=== PATIENT | female | born 1990 | race Caucasian/White ===

== ENCOUNTER 2021-09-03 18:38 | Emergency (ER) | payer OTHER ==
[2021-09-03 18:49] VITALS: TEMP 98.9; BMI 22.3
[2021-09-03 19:47] LABS: BASO % 0.7 % (0-2.0); EOS % 1.4 % (0-4.5); HEMATOCRIT 30.8 % (32.4-45.2); HEMOGLOBIN 10.2 GM/dL (10.7-15.3); LYMPH % 39.1 % (8-40); MCH 27.5 pg (25.7-33.7); MEAN CELL VOLUME 83.3 fl (80-96); MEAN PLT VOLUME 7.7 fl (7.5-11.1); MONO % 9.5 % (3.8-10.2); NEUT % 49.3 % (42.8-82.8); PLATELET COUNT 286 10^3/uL (134-434); RDW 14.2 % (11.6-15.6); WHITE BLOOD COUNT 6.4 K/mm3 (4.0-10.0)
[2021-09-03 19:48] LABS: PH,URINE 5.5 (5.0-8.0); URINE APPEARANCE CLEAR; URINE BILIRUBIN NEGATIVE (NEGATIVE); URINE COLOR YELLOW; URINE GLUCOSE (UA) NEGATIVE (NEGATIVE); URINE KETONE NEGATIVE (NEGATIVE); URINE LEUK ESTERASE NEGATIVE (NEGATIVE); URINE NITRITE NEGATIVE (NEGATIVE); URINE PROTEIN NEGATIVE (NEGATIVE); URINE UROBILINOGEN 0.2 mg/dL (0.2-1.0)
[2021-09-03] MEDS ORDERED: IBUPROFEN 400 MG TABLET (FP) PO ONE ×2 (20:16→20:20)
[2021-09-03 20:45] LABS: BLOOD UREA NITROGEN 3.7 mg/dL (7-18); CALCIUM 8.7 mg/dL (8.5-10.1)
[2021-09-03 20:46] LABS: ALBUMIN 3.6 g/dl (3.4-5.0)
[2021-09-03 20:49] LABS: CREATININE 0.6 mg/dL (0.55-1.3)
[2021-09-03 20:50] LABS: BILIRUBIN,TOTAL 0.5 mg/dL (0.2-1); TOT PROT 6.8 g/dl (6.4-8.2)
[2021-09-04 00:16] VITALS: BP 104/67; PULSE 62
== END 2021-09-04 00:17 | disposition home or self-care (01) ==
LOC: JER 18:38
DX: R10.2 Pelvic and perineal pain (principal)
CPT/HCPCS: 36415; 76856-TC; 80053; 81003; 84703; 85025; 87086; 87491; 87591; 99285-25

== ENCOUNTER 2021-09-04 01:52 | Inpatient (IN) | payer OTHER ==
[2021-09-04 02:04] VITALS: BMI 22.3
[2021-09-04] MEDS ORDERED: guaiFENesin 200 MG/10 ML 10 ML UNIT-DOSE CUPS PO PRN (02:38)
[2021-09-04] MEDS ORDERED: P-EPHED 60MG/TRIPROLIDI 2.5MG TABLET PO PRN (02:38)
[2021-09-04] MEDS ORDERED: MAGNESIUM HYDROX 2400MG/30ML ORAL SUSPENSION 30 ML CUP PO PRN (02:38)
[2021-09-04] MEDS ORDERED: NICOTINE POLACRILEX 2 MG GUM BC PRN (02:38)
[2021-09-04] MEDS ORDERED: MAGNESIUM CITRATE 300 ML BOTTLE PO PRN (02:38)
[2021-09-04] MEDS ORDERED: LOPERAMIDE HCL 2 MG CAPSULE PO PRN (02:38)
[2021-09-04] MEDS ORDERED: ALBUTEROL SO4 HFA INHALER IH PRN (02:41)
[2021-09-04] MEDS ORDERED: TUBERCULIN PPD 5 TU/0.1ML VIAL ID ONE (03:33)
[2021-09-04] MEDS: hydrOXYzine PAMOATE 25 MG CAPSULE (FP) PO PRN ×2 (03:49→21:56)
[2021-09-04] MEDS: PRENATAL VITAMINS W/ FOLIC ACID TABLET (FP) PO SCH (09:58)
[2021-09-04] MEDS: NICOTINE 14 MG/24 HOURS TOPICAL PATCH TD SCH (09:58)
[2021-09-04] MEDS: ESCITALOPRAM OXALATE 10 MG TABLET PO SCH (11:38)
[2021-09-04] MEDS ORDERED: BUPRENORPHINE/NALOXONE 4 MG/1 MG FILM PACKET SL ONE (11:45)
[2021-09-04] MEDS: GABAPENTIN 400 MG CAPSULE PO SCH ×2 (13:12→21:55)
[2021-09-04 14:03] LABS: HEMATOCRIT 28.9 % (32.4-45.2); HEMOGLOBIN 9.5 GM/dL (10.7-15.3); MCH 27.3 pg (25.7-33.7); MEAN CELL VOLUME 82.9 fl (80-96); MEAN PLT VOLUME 8.4 fl (7.5-11.1); PLATELET COUNT 264 10^3/uL (134-434); RBC 3.49 M/mm3 (3.60-5.2); RDW 14.3 % (11.6-15.6)
[2021-09-04 14:15] LABS: BLOOD UREA NITROGEN 4.8 mg/dL (7-18); CALCIUM 8.6 mg/dL (8.5-10.1)
[2021-09-04 14:18] LABS: CREATININE 0.7 mg/dL (0.55-1.3)
[2021-09-04 14:20] LABS: BILIRUBIN,TOTAL 0.2 mg/dL (0.2-1); TOT PROT 5.9 g/dl (6.4-8.2)
[2021-09-04 15:47] LABS: SYPHILIS W/ RPR CONF NON-REACTIVE (NONREACTIVE)
[2021-09-04 16:04] LABS: HIV INTERPRETATION NEGATIVE (NEGATIVE)
[2021-09-04] MEDS: FERROUS SO4 325 MG TABLET (FP) PO SCH (17:43)
[2021-09-04] MEDS: BUPRENORPHINE/NALOXONE 8 MG/2 MG FILM PACKET SL SCH (17:43)
[2021-09-04] MEDS: NICOTINE 10 MG CARTRIDGE (INHALER) IH PRN (21:55)
[2021-09-04] MEDS: THIAMINE HCL 100 MG TABLET (FP) PO SCH (21:56)
[2021-09-04] MEDS: QUEtiapine FUMARATE 100 MG TABLET (FP) PO SCH (21:59)
[2021-09-04] MEDS ORDERED: MELATONIN 5 MG TABLETS PO SCH (22:00)
[2021-09-04] MEDS: IBUPROFEN 400 MG TABLET (FP) PO PRN (22:01)
[2021-09-05] MEDS: GABAPENTIN 400 MG CAPSULE PO SCH ×3 (06:53→21:09)
[2021-09-05] MEDS: BUPRENORPHINE/NALOXONE 8 MG/2 MG FILM PACKET SL SCH ×2 (06:53→17:18)
[2021-09-05] MEDS: FERROUS SO4 325 MG TABLET (FP) PO SCH ×2 (07:40→17:18)
[2021-09-05] MEDS: NICOTINE 14 MG/24 HOURS TOPICAL PATCH TD SCH (10:08)
[2021-09-05] MEDS: ESCITALOPRAM OXALATE 10 MG TABLET PO SCH (10:08)
[2021-09-05] MEDS: PRENATAL VITAMINS W/ FOLIC ACID TABLET (FP) PO SCH (10:08)
[2021-09-05] MEDS: IBUPROFEN 400 MG TABLET (FP) PO PRN ×2 (10:09→21:10)
[2021-09-05] MEDS: THIAMINE HCL 100 MG TABLET (FP) PO SCH (21:09)
[2021-09-05] MEDS: QUEtiapine FUMARATE 100 MG TABLET (FP) PO SCH (21:09)
[2021-09-06] MEDS: BUPRENORPHINE/NALOXONE 8 MG/2 MG FILM PACKET SL SCH ×2 (06:56→17:39)
[2021-09-06] MEDS: GABAPENTIN 400 MG CAPSULE PO SCH ×3 (06:56→21:19)
[2021-09-06] MEDS: FERROUS SO4 325 MG TABLET (FP) PO SCH ×2 (07:12→17:39)
[2021-09-06] MEDS: PRENATAL VITAMINS W/ FOLIC ACID TABLET (FP) PO SCH (09:56)
[2021-09-06] MEDS: ESCITALOPRAM OXALATE 10 MG TABLET PO SCH (09:56)
[2021-09-06] MEDS: NICOTINE 14 MG/24 HOURS TOPICAL PATCH TD SCH (09:57)
[2021-09-06 17:05] LABS: EPI CELLS >36 /uL (0-25.1); HYALINE CASTS 1 /uL (0-3.1); PH,URINE 5.5 (5.0-8.0); URINE APPEARANCE CLEAR; URINE BACTERIA 753 /uL (0-1359); URINE BILIRUBIN NEGATIVE (NEGATIVE); URINE COLOR YELLOW; URINE GLUCOSE (UA) NEGATIVE (NEGATIVE); URINE KETONE NEGATIVE (NEGATIVE); URINE LEUK ESTERASE 1+ (NEGATIVE); URINE NITRITE NEGATIVE (NEGATIVE); URINE PROTEIN NEGATIVE (NEGATIVE); URINE RBC 5 /uL (0-23.9); URINE UROBILINOGEN 0.2 mg/dL (0.2-1.0); URINE WBC 36 /uL (0-25.8)
[2021-09-06] MEDS: IBUPROFEN 400 MG TABLET (FP) PO PRN (17:39)
[2021-09-06] MEDS: QUEtiapine FUMARATE 100 MG TABLET (FP) PO SCH (21:19)
[2021-09-06] MEDS: THIAMINE HCL 100 MG TABLET (FP) PO SCH (21:19)
[2021-09-07] MEDS: GABAPENTIN 400 MG CAPSULE PO SCH ×3 (06:46→21:20)
[2021-09-07] MEDS: BUPRENORPHINE/NALOXONE 8 MG/2 MG FILM PACKET SL SCH ×2 (06:47→17:38)
[2021-09-07] MEDS: FERROUS SO4 325 MG TABLET (FP) PO SCH ×2 (07:36→17:37)
[2021-09-07] MEDS: ESCITALOPRAM OXALATE 10 MG TABLET PO SCH (10:28)
[2021-09-07] MEDS: NICOTINE 14 MG/24 HOURS TOPICAL PATCH TD SCH (10:28)
[2021-09-07] MEDS: PRENATAL VITAMINS W/ FOLIC ACID TABLET (FP) PO SCH (10:28)
[2021-09-07] MEDS: ACETAMINOPHEN 325 MG TABLET (FP) PO PRN (10:28)
[2021-09-07] MEDS: NICOTINE 10 MG CARTRIDGE (INHALER) IH PRN (10:30)
[2021-09-07] MEDS: METHYL SALICYLATE/MENTHOL OINT 30 GM TUBE TP SCH ×2 (13:26→21:19)
[2021-09-07] MEDS: THIAMINE HCL 100 MG TABLET (FP) PO SCH (21:19)
[2021-09-07] MEDS: QUEtiapine FUMARATE 100 MG TABLET (FP) PO SCH (21:20)
[2021-09-08] MEDS: BUPRENORPHINE/NALOXONE 8 MG/2 MG FILM PACKET SL SCH ×2 (06:56→16:50)
[2021-09-08] MEDS: GABAPENTIN 400 MG CAPSULE PO SCH ×3 (06:56→21:51)
[2021-09-08] MEDS: FERROUS SO4 325 MG TABLET (FP) PO SCH ×2 (07:19→16:50)
[2021-09-08] MEDS: ESCITALOPRAM OXALATE 10 MG TABLET PO SCH (10:11)
[2021-09-08] MEDS: METHYL SALICYLATE/MENTHOL OINT 30 GM TUBE TP SCH ×2 (10:11→21:51)
[2021-09-08] MEDS: NICOTINE 14 MG/24 HOURS TOPICAL PATCH TD SCH (10:12)
[2021-09-08] MEDS: PRENATAL VITAMINS W/ FOLIC ACID TABLET (FP) PO SCH (10:12)
[2021-09-08 14:07] LABS: SARS-CoV-2 NAA Not Detected (Not Detected)
[2021-09-08] MEDS: NICOTINE 10 MG CARTRIDGE (INHALER) IH PRN (16:47)
[2021-09-08] MEDS: QUEtiapine FUMARATE 100 MG TABLET (FP) PO SCH (21:51)
[2021-09-08] MEDS: THIAMINE HCL 100 MG TABLET (FP) PO SCH (21:51)
[2021-09-08] MEDS: IBUPROFEN 400 MG TABLET (FP) PO PRN (21:53)
[2021-09-09] MEDS: BUPRENORPHINE/NALOXONE 8 MG/2 MG FILM PACKET SL SCH ×2 (07:02→17:44)
[2021-09-09] MEDS: GABAPENTIN 400 MG CAPSULE PO SCH ×3 (07:02→21:48)
[2021-09-09] MEDS: FERROUS SO4 325 MG TABLET (FP) PO SCH ×2 (07:02→17:44)
[2021-09-09] MEDS: NICOTINE 14 MG/24 HOURS TOPICAL PATCH TD SCH (10:22)
[2021-09-09] MEDS: PRENATAL VITAMINS W/ FOLIC ACID TABLET (FP) PO SCH (10:22)
[2021-09-09] MEDS: METHYL SALICYLATE/MENTHOL OINT 30 GM TUBE TP SCH ×2 (10:22→22:01)
[2021-09-09] MEDS: ESCITALOPRAM OXALATE 10 MG TABLET PO SCH (10:22)
[2021-09-09] MEDS: NICOTINE 10 MG CARTRIDGE (INHALER) IH PRN (13:54)
[2021-09-09] MEDS: DOXYCYCLINE HYCLATE 100 MG CAPSULE PO SCH (21:47)
[2021-09-09] MEDS: THIAMINE HCL 100 MG TABLET (FP) PO SCH (21:48)
[2021-09-09] MEDS: QUEtiapine FUMARATE 100 MG TABLET (FP) PO SCH (21:48)
[2021-09-10] MEDS: BUPRENORPHINE/NALOXONE 8 MG/2 MG FILM PACKET SL SCH ×2 (07:01→17:41)
[2021-09-10] MEDS: GABAPENTIN 400 MG CAPSULE PO SCH ×3 (07:01→21:40)
[2021-09-10] MEDS: FERROUS SO4 325 MG TABLET (FP) PO SCH ×2 (07:59→17:41)
[2021-09-10] MEDS: METHYL SALICYLATE/MENTHOL OINT 30 GM TUBE TP SCH ×2 (10:13→21:40)
[2021-09-10] MEDS: ESCITALOPRAM OXALATE 10 MG TABLET PO SCH (10:13)
[2021-09-10] MEDS: NICOTINE 14 MG/24 HOURS TOPICAL PATCH TD SCH (10:13)
[2021-09-10] MEDS: DOXYCYCLINE HYCLATE 100 MG CAPSULE PO SCH ×2 (10:14→17:51)
[2021-09-10] MEDS: NICOTINE 10 MG CARTRIDGE (INHALER) IH PRN ×2 (10:14→17:41)
[2021-09-10] MEDS: PRENATAL VITAMINS W/ FOLIC ACID TABLET (FP) PO SCH (10:15)
[2021-09-10] MEDS: QUEtiapine FUMARATE 100 MG TABLET (FP) PO SCH (21:40)
[2021-09-10] MEDS: THIAMINE HCL 100 MG TABLET (FP) PO SCH (21:40)
[2021-09-10] MEDS: hydrOXYzine PAMOATE 25 MG CAPSULE (FP) PO PRN (21:40)
[2021-09-11] MEDS: NICOTINE 10 MG CARTRIDGE (INHALER) IH PRN (06:49)
[2021-09-11] MEDS: BUPRENORPHINE/NALOXONE 8 MG/2 MG FILM PACKET SL SCH ×2 (06:50→17:10)
[2021-09-11] MEDS: GABAPENTIN 400 MG CAPSULE PO SCH ×3 (06:50→21:58)
[2021-09-11] MEDS: FERROUS SO4 325 MG TABLET (FP) PO SCH ×2 (07:21→17:09)
[2021-09-11] MEDS: METHYL SALICYLATE/MENTHOL OINT 30 GM TUBE TP SCH ×2 (10:30→21:59)
[2021-09-11] MEDS: NICOTINE 14 MG/24 HOURS TOPICAL PATCH TD SCH (10:30)
[2021-09-11] MEDS: IBUPROFEN 400 MG TABLET (FP) PO PRN (10:31)
[2021-09-11] MEDS: hydrOXYzine PAMOATE 25 MG CAPSULE (FP) PO PRN ×3 (10:31→21:59)
[2021-09-11] MEDS: ESCITALOPRAM OXALATE 10 MG TABLET PO SCH (10:31)
[2021-09-11] MEDS: PRENATAL VITAMINS W/ FOLIC ACID TABLET (FP) PO SCH (10:31)
[2021-09-11] MEDS: DOXYCYCLINE HYCLATE 100 MG CAPSULE PO SCH ×2 (10:32→17:08)
[2021-09-11] MEDS: ACETAMINOPHEN 325 MG TABLET (FP) PO PRN (14:08)
[2021-09-11] MEDS: QUEtiapine FUMARATE 100 MG TABLET (FP) PO SCH (21:58)
[2021-09-11] MEDS: THIAMINE HCL 100 MG TABLET (FP) PO SCH (21:59)
[2021-09-12] MEDS: BUPRENORPHINE/NALOXONE 8 MG/2 MG FILM PACKET SL SCH ×2 (06:58→17:15)
[2021-09-12] MEDS: hydrOXYzine PAMOATE 25 MG CAPSULE (FP) PO PRN ×5 (06:58→21:32)
[2021-09-12] MEDS: GABAPENTIN 400 MG CAPSULE PO SCH ×3 (06:58→21:32)
[2021-09-12] MEDS: IBUPROFEN 400 MG TABLET (FP) PO PRN (06:59)
[2021-09-12] MEDS: FERROUS SO4 325 MG TABLET (FP) PO SCH ×2 (07:01→17:15)
[2021-09-12] MEDS: NICOTINE 10 MG CARTRIDGE (INHALER) IH PRN ×3 (07:23→21:33)
[2021-09-12] MEDS: METHYL SALICYLATE/MENTHOL OINT 30 GM TUBE TP SCH ×2 (10:23→21:32)
[2021-09-12] MEDS: ESCITALOPRAM OXALATE 10 MG TABLET PO SCH (10:24)
[2021-09-12] MEDS: DOXYCYCLINE HYCLATE 100 MG CAPSULE PO SCH ×2 (10:24→17:55)
[2021-09-12] MEDS: NICOTINE 14 MG/24 HOURS TOPICAL PATCH TD SCH (10:24)
[2021-09-12] MEDS: PRENATAL VITAMINS W/ FOLIC ACID TABLET (FP) PO SCH (10:24)
[2021-09-12] MEDS: MAG HYDROX/AL HYDROX/SIMETH 30 ML UNIT-DOSE CUP PO PRN (14:27)
[2021-09-12] MEDS: QUEtiapine FUMARATE 100 MG TABLET (FP) PO SCH (21:32)
[2021-09-12] MEDS: THIAMINE HCL 100 MG TABLET (FP) PO SCH (21:32)
[2021-09-12] MEDS: ACETAMINOPHEN 325 MG TABLET (FP) PO PRN (22:37)
[2021-09-13] MEDS: GABAPENTIN 400 MG CAPSULE PO SCH ×3 (06:31→21:50)
[2021-09-13] MEDS: BUPRENORPHINE/NALOXONE 8 MG/2 MG FILM PACKET SL SCH ×2 (06:32→16:34)
[2021-09-13] MEDS: NICOTINE 10 MG CARTRIDGE (INHALER) IH PRN ×3 (06:32→16:36)
[2021-09-13] MEDS: hydrOXYzine PAMOATE 25 MG CAPSULE (FP) PO PRN ×5 (06:33→21:51)
[2021-09-13] MEDS: FERROUS SO4 325 MG TABLET (FP) PO SCH ×2 (07:04→17:57)
[2021-09-13] MEDS: METHYL SALICYLATE/MENTHOL OINT 30 GM TUBE TP SCH ×2 (10:20→21:50)
[2021-09-13] MEDS: ESCITALOPRAM OXALATE 10 MG TABLET PO SCH (10:20)
[2021-09-13] MEDS: PRENATAL VITAMINS W/ FOLIC ACID TABLET (FP) PO SCH (10:20)
[2021-09-13] MEDS: DOXYCYCLINE HYCLATE 100 MG CAPSULE PO SCH ×2 (10:20→17:57)
[2021-09-13] MEDS: NICOTINE 14 MG/24 HOURS TOPICAL PATCH TD SCH (10:21)
[2021-09-13] MEDS: ACETAMINOPHEN 325 MG TABLET (FP) PO PRN ×2 (10:22→16:34)
[2021-09-13] MEDS: MAG HYDROX/AL HYDROX/SIMETH 30 ML UNIT-DOSE CUP PO PRN (18:33)
[2021-09-13] MEDS: QUEtiapine FUMARATE 100 MG TABLET (FP) PO SCH (21:50)
[2021-09-13] MEDS: THIAMINE HCL 100 MG TABLET (FP) PO SCH (21:50)
[2021-09-14] MEDS: ACETAMINOPHEN 325 MG TABLET (FP) PO PRN (06:10)
[2021-09-14] MEDS: GABAPENTIN 400 MG CAPSULE PO SCH ×3 (06:10→21:56)
[2021-09-14] MEDS: BUPRENORPHINE/NALOXONE 8 MG/2 MG FILM PACKET SL SCH ×2 (06:10→16:49)
[2021-09-14] MEDS: NICOTINE 10 MG CARTRIDGE (INHALER) IH PRN ×3 (06:12→21:56)
[2021-09-14] MEDS: FERROUS SO4 325 MG TABLET (FP) PO SCH ×2 (07:05→16:49)
[2021-09-14] MEDS: hydrOXYzine PAMOATE 25 MG CAPSULE (FP) PO PRN ×3 (10:40→21:56)
[2021-09-14] MEDS: METHYL SALICYLATE/MENTHOL OINT 30 GM TUBE TP SCH ×2 (10:40→21:57)
[2021-09-14] MEDS: ESCITALOPRAM OXALATE 10 MG TABLET PO SCH (10:40)
[2021-09-14] MEDS: NICOTINE 14 MG/24 HOURS TOPICAL PATCH TD SCH (10:41)
[2021-09-14] MEDS: DOXYCYCLINE HYCLATE 100 MG CAPSULE PO SCH ×2 (10:41→18:17)
[2021-09-14] MEDS: PRENATAL VITAMINS W/ FOLIC ACID TABLET (FP) PO SCH (10:42)
[2021-09-14] MEDS: THIAMINE HCL 100 MG TABLET (FP) PO SCH (21:56)
[2021-09-14] MEDS: QUEtiapine FUMARATE 100 MG TABLET (FP) PO SCH (21:56)
[2021-09-15] MEDS: ACETAMINOPHEN 325 MG TABLET (FP) PO PRN ×2 (03:46→14:53)
[2021-09-15] MEDS: BUPRENORPHINE/NALOXONE 8 MG/2 MG FILM PACKET SL SCH ×2 (06:24→17:14)
[2021-09-15] MEDS: GABAPENTIN 400 MG CAPSULE PO SCH ×3 (06:24→22:04)
[2021-09-15] MEDS: hydrOXYzine PAMOATE 25 MG CAPSULE (FP) PO PRN ×5 (06:25→22:04)
[2021-09-15] MEDS: NICOTINE 10 MG CARTRIDGE (INHALER) IH PRN ×3 (06:26→18:44)
[2021-09-15] MEDS: FERROUS SO4 325 MG TABLET (FP) PO SCH ×2 (07:15→16:58)
[2021-09-15] MEDS: NICOTINE 14 MG/24 HOURS TOPICAL PATCH TD SCH (10:30)
[2021-09-15] MEDS: METHYL SALICYLATE/MENTHOL OINT 30 GM TUBE TP SCH ×2 (10:30→22:02)
[2021-09-15] MEDS: PRENATAL VITAMINS W/ FOLIC ACID TABLET (FP) PO SCH (10:30)
[2021-09-15] MEDS: DOXYCYCLINE HYCLATE 100 MG CAPSULE PO SCH ×2 (10:31→18:41)
[2021-09-15] MEDS: ESCITALOPRAM OXALATE 10 MG TABLET PO SCH (10:31)
[2021-09-15] MEDS ORDERED: PT OWN MED DRAWER 7, Y5N ONE (18:09)
[2021-09-15] MEDS: QUEtiapine FUMARATE 100 MG TABLET (FP) PO SCH (22:04)
[2021-09-15] MEDS: THIAMINE HCL 100 MG TABLET (FP) PO SCH (22:04)
[2021-09-15] MEDS: IBUPROFEN 400 MG TABLET (FP) PO PRN (22:04)
[2021-09-16] MEDS: hydrOXYzine PAMOATE 25 MG CAPSULE (FP) PO PRN ×4 (06:46→21:57)
[2021-09-16] MEDS: BUPRENORPHINE/NALOXONE 8 MG/2 MG FILM PACKET SL SCH ×2 (06:46→17:10)
[2021-09-16] MEDS: NICOTINE 10 MG CARTRIDGE (INHALER) IH PRN ×3 (06:47→21:57)
[2021-09-16] MEDS: GABAPENTIN 400 MG CAPSULE PO SCH ×3 (06:47→21:57)
[2021-09-16] MEDS: FERROUS SO4 325 MG TABLET (FP) PO SCH ×2 (07:34→17:10)
[2021-09-16] MEDS: DOXYCYCLINE HYCLATE 100 MG CAPSULE PO SCH ×2 (10:19→18:53)
[2021-09-16] MEDS: ESCITALOPRAM OXALATE 10 MG TABLET PO SCH (10:19)
[2021-09-16] MEDS: PRENATAL VITAMINS W/ FOLIC ACID TABLET (FP) PO SCH (10:19)
[2021-09-16] MEDS: METHYL SALICYLATE/MENTHOL OINT 30 GM TUBE TP SCH ×2 (10:19→21:56)
[2021-09-16] MEDS: NICOTINE 14 MG/24 HOURS TOPICAL PATCH TD SCH (10:20)
[2021-09-16] MEDS: QUEtiapine FUMARATE 100 MG TABLET (FP) PO SCH (21:57)
[2021-09-16] MEDS: THIAMINE HCL 100 MG TABLET (FP) PO SCH (21:57)
[2021-09-17] MEDS: BUPRENORPHINE/NALOXONE 8 MG/2 MG FILM PACKET SL SCH ×2 (06:21→17:52)
[2021-09-17] MEDS: GABAPENTIN 400 MG CAPSULE PO SCH ×3 (06:22→22:00)
[2021-09-17] MEDS: hydrOXYzine PAMOATE 25 MG CAPSULE (FP) PO PRN ×5 (06:22→21:59)
[2021-09-17] MEDS: NICOTINE 10 MG CARTRIDGE (INHALER) IH PRN ×3 (06:23→22:01)
[2021-09-17] MEDS: ESCITALOPRAM OXALATE 10 MG TABLET PO SCH (10:51)
[2021-09-17] MEDS: PRENATAL VITAMINS W/ FOLIC ACID TABLET (FP) PO SCH (10:52)
[2021-09-17] MEDS: METHYL SALICYLATE/MENTHOL OINT 30 GM TUBE TP SCH ×2 (10:52→22:07)
[2021-09-17] MEDS: FERROUS SO4 325 MG TABLET (FP) PO SCH ×2 (10:52→17:52)
[2021-09-17] MEDS: NICOTINE 14 MG/24 HOURS TOPICAL PATCH TD SCH (10:52)
[2021-09-17] MEDS: THIAMINE HCL 100 MG TABLET (FP) PO SCH (21:58)
[2021-09-17] MEDS: QUEtiapine FUMARATE 100 MG TABLET (FP) PO SCH (22:00)
[2021-09-17] MEDS: IBUPROFEN 400 MG TABLET (FP) PO PRN (22:00)
[2021-09-18] MEDS: NICOTINE 10 MG CARTRIDGE (INHALER) IH PRN ×4 (06:53→22:13)
[2021-09-18] MEDS: BUPRENORPHINE/NALOXONE 8 MG/2 MG FILM PACKET SL SCH ×2 (06:54→16:58)
[2021-09-18] MEDS: GABAPENTIN 400 MG CAPSULE PO SCH ×3 (06:54→22:11)
[2021-09-18] MEDS: hydrOXYzine PAMOATE 25 MG CAPSULE (FP) PO PRN ×4 (06:54→19:09)
[2021-09-18] MEDS: ACETAMINOPHEN 325 MG TABLET (FP) PO PRN (06:55)
[2021-09-18] MEDS: FERROUS SO4 325 MG TABLET (FP) PO SCH ×2 (07:01→16:57)
[2021-09-18] MEDS: METHYL SALICYLATE/MENTHOL OINT 30 GM TUBE TP SCH ×2 (10:25→22:11)
[2021-09-18] MEDS: ESCITALOPRAM OXALATE 10 MG TABLET PO SCH (10:25)
[2021-09-18] MEDS: PRENATAL VITAMINS W/ FOLIC ACID TABLET (FP) PO SCH (10:26)
[2021-09-18] MEDS: QUEtiapine FUMARATE 100 MG TABLET (FP) PO SCH (22:11)
[2021-09-18] MEDS: THIAMINE HCL 100 MG TABLET (FP) PO SCH (22:11)
[2021-09-18] MEDS: IBUPROFEN 400 MG TABLET (FP) PO PRN (22:13)
[2021-09-19] MEDS: BUPRENORPHINE/NALOXONE 8 MG/2 MG FILM PACKET SL SCH ×2 (06:16→17:18)
[2021-09-19] MEDS: GABAPENTIN 400 MG CAPSULE PO SCH ×3 (06:16→21:56)
[2021-09-19] MEDS: NICOTINE 10 MG CARTRIDGE (INHALER) IH PRN ×4 (06:17→21:58)
[2021-09-19] MEDS: hydrOXYzine PAMOATE 25 MG CAPSULE (FP) PO PRN ×3 (06:17→21:56)
[2021-09-19] MEDS: FERROUS SO4 325 MG TABLET (FP) PO SCH ×2 (07:16→17:18)
[2021-09-19] MEDS: METHYL SALICYLATE/MENTHOL OINT 30 GM TUBE TP SCH ×2 (10:35→21:56)
[2021-09-19] MEDS: ACETAMINOPHEN 325 MG TABLET (FP) PO PRN (10:35)
[2021-09-19] MEDS: PRENATAL VITAMINS W/ FOLIC ACID TABLET (FP) PO SCH ×2 (10:35→10:37)
[2021-09-19] MEDS: ESCITALOPRAM OXALATE 10 MG TABLET PO SCH (10:35)
[2021-09-19] MEDS: THIAMINE HCL 100 MG TABLET (FP) PO SCH (21:56)
[2021-09-19] MEDS: QUEtiapine FUMARATE 100 MG TABLET (FP) PO SCH (21:56)
[2021-09-20] MEDS: BUPRENORPHINE/NALOXONE 8 MG/2 MG FILM PACKET SL SCH ×2 (06:09→17:10)
[2021-09-20] MEDS: GABAPENTIN 400 MG CAPSULE PO SCH ×3 (06:10→22:07)
[2021-09-20] MEDS: hydrOXYzine PAMOATE 25 MG CAPSULE (FP) PO PRN ×4 (06:11→22:08)
[2021-09-20] MEDS: NICOTINE 10 MG CARTRIDGE (INHALER) IH PRN ×4 (06:11→22:08)
[2021-09-20] MEDS: FERROUS SO4 325 MG TABLET (FP) PO SCH ×2 (08:05→17:10)
[2021-09-20] MEDS: ESCITALOPRAM OXALATE 10 MG TABLET PO SCH (10:36)
[2021-09-20] MEDS: METHYL SALICYLATE/MENTHOL OINT 30 GM TUBE TP SCH ×2 (10:37→22:08)
[2021-09-20] MEDS: PRENATAL VITAMINS W/ FOLIC ACID TABLET (FP) PO SCH (10:37)
[2021-09-20] MEDS: QUEtiapine FUMARATE 100 MG TABLET (FP) PO SCH (22:07)
[2021-09-20] MEDS: THIAMINE HCL 100 MG TABLET (FP) PO SCH (22:07)
[2021-09-21] MEDS: IBUPROFEN 400 MG TABLET (FP) PO PRN ×2 (04:24→21:55)
[2021-09-21] MEDS: GABAPENTIN 400 MG CAPSULE PO SCH (06:28)
[2021-09-21] MEDS: BUPRENORPHINE/NALOXONE 8 MG/2 MG FILM PACKET SL SCH ×2 (06:28→18:02)
[2021-09-21] MEDS: FERROUS SO4 325 MG TABLET (FP) PO SCH ×2 (07:20→18:01)
[2021-09-21 10:31] LABS: HEMATOCRIT 33.6 % (32.4-45.2); MCH 27.3 pg (25.7-33.7); MCHC 32.7 g/dl (32.0-36.0); MEAN CELL VOLUME 83.4 fl (80-96); PLATELET COUNT 330 10^3/uL (134-434); RBC 4.03 M/mm3 (3.60-5.2)
[2021-09-21] MEDS: METHYL SALICYLATE/MENTHOL OINT 30 GM TUBE TP SCH ×2 (10:57→21:54)
[2021-09-21] MEDS: ESCITALOPRAM OXALATE 10 MG TABLET PO SCH (10:57)
[2021-09-21] MEDS: PRENATAL VITAMINS W/ FOLIC ACID TABLET (FP) PO SCH (10:57)
[2021-09-21] MEDS: NICOTINE 10 MG CARTRIDGE (INHALER) IH PRN ×3 (10:59→21:56)
[2021-09-21] MEDS: GABAPENTIN 100 MG CAPSULE PO SCH ×2 (13:59→21:53)
[2021-09-21] MEDS: ACETAMINOPHEN 325 MG TABLET (FP) PO PRN (18:01)
[2021-09-21 20:00] LABS: EPI CELLS 20 /uL (0-25.1); HYALINE CASTS 0 /uL (0-3.1); PH,URINE 6.5 (5.0-8.0); URINE APPEARANCE CLOUDY; URINE BACTERIA 410 /uL (0-1359); URINE BILIRUBIN NEGATIVE (NEGATIVE); URINE COLOR YELLOW; URINE GLUCOSE (UA) NEGATIVE (NEGATIVE); URINE KETONE NEGATIVE (NEGATIVE); URINE LEUK ESTERASE 3+ (NEGATIVE); URINE NITRITE NEGATIVE (NEGATIVE); URINE PROTEIN NEGATIVE (NEGATIVE); URINE RBC 6 /uL (0-23.9); URINE UROBILINOGEN 0.2 mg/dL (0.2-1.0); URINE WBC 486 /uL (0-25.8)
[2021-09-21] MEDS: QUEtiapine FUMARATE 100 MG TABLET (FP) PO SCH (21:53)
[2021-09-21] MEDS: THIAMINE HCL 100 MG TABLET (FP) PO SCH (21:53)
[2021-09-22] MEDS: BUPRENORPHINE/NALOXONE 8 MG/2 MG FILM PACKET SL SCH ×2 (06:04→16:34)
[2021-09-22] MEDS: IBUPROFEN 400 MG TABLET (FP) PO PRN ×2 (06:04→16:34)
[2021-09-22] MEDS: GABAPENTIN 100 MG CAPSULE PO SCH ×3 (06:04→21:50)
[2021-09-22] MEDS: NICOTINE 10 MG CARTRIDGE (INHALER) IH PRN ×3 (06:06→21:50)
[2021-09-22] MEDS: FERROUS SO4 325 MG TABLET (FP) PO SCH ×2 (07:02→16:34)
[2021-09-22] MEDS: PRENATAL VITAMINS W/ FOLIC ACID TABLET (FP) PO SCH (10:34)
[2021-09-22] MEDS: ESCITALOPRAM OXALATE 10 MG TABLET PO SCH (10:34)
[2021-09-22] MEDS: METHYL SALICYLATE/MENTHOL OINT 30 GM TUBE TP SCH ×2 (10:38→21:50)
[2021-09-22] MEDS: QUEtiapine FUMARATE 100 MG TABLET (FP) PO SCH (21:50)
[2021-09-22] MEDS: THIAMINE HCL 100 MG TABLET (FP) PO SCH (21:50)
[2021-09-23] MEDS: BUPRENORPHINE/NALOXONE 8 MG/2 MG FILM PACKET SL SCH ×2 (06:54→17:03)
[2021-09-23] MEDS: GABAPENTIN 100 MG CAPSULE PO SCH ×3 (06:54→22:07)
[2021-09-23] MEDS: IBUPROFEN 400 MG TABLET (FP) PO PRN (06:57)
[2021-09-23] MEDS: NICOTINE 10 MG CARTRIDGE (INHALER) IH PRN ×2 (06:57→17:03)
[2021-09-23] MEDS: FERROUS SO4 325 MG TABLET (FP) PO SCH ×2 (07:01→17:00)
[2021-09-23] MEDS: PRENATAL VITAMINS W/ FOLIC ACID TABLET (FP) PO SCH (10:44)
[2021-09-23] MEDS: METHYL SALICYLATE/MENTHOL OINT 30 GM TUBE TP SCH ×2 (10:44→22:07)
[2021-09-23] MEDS: ESCITALOPRAM OXALATE 10 MG TABLET PO SCH (10:44)
[2021-09-23] MEDS: QUEtiapine FUMARATE 100 MG TABLET (FP) PO SCH (22:07)
[2021-09-23] MEDS: THIAMINE HCL 100 MG TABLET (FP) PO SCH (22:07)
[2021-09-24] MEDS: GABAPENTIN 100 MG CAPSULE PO SCH ×3 (05:55→21:57)
[2021-09-24] MEDS: NICOTINE 10 MG CARTRIDGE (INHALER) IH PRN ×2 (05:55→17:58)
[2021-09-24] MEDS: BUPRENORPHINE/NALOXONE 8 MG/2 MG FILM PACKET SL SCH ×2 (06:01→17:22)
[2021-09-24] MEDS: FERROUS SO4 325 MG TABLET (FP) PO SCH ×2 (07:31→17:22)
[2021-09-24] MEDS: METHYL SALICYLATE/MENTHOL OINT 30 GM TUBE TP SCH ×2 (11:13→21:57)
[2021-09-24] MEDS: PRENATAL VITAMINS W/ FOLIC ACID TABLET (FP) PO SCH (11:14)
[2021-09-24] MEDS: ESCITALOPRAM OXALATE 10 MG TABLET PO SCH (11:15)
[2021-09-24] MEDS: CLINDAMYCIN HCL 150 MG CAPSULE (FP) PO SCH ×2 (17:57→23:06)
[2021-09-24] MEDS: THIAMINE HCL 100 MG TABLET (FP) PO SCH (21:56)
[2021-09-24] MEDS: QUEtiapine FUMARATE 100 MG TABLET (FP) PO SCH (21:57)
[2021-09-25] MEDS: CLINDAMYCIN HCL 150 MG CAPSULE (FP) PO SCH ×3 (06:02→17:09)
[2021-09-25] MEDS: GABAPENTIN 100 MG CAPSULE PO SCH ×3 (06:02→21:43)
[2021-09-25] MEDS: BUPRENORPHINE/NALOXONE 8 MG/2 MG FILM PACKET SL SCH ×2 (06:02→17:09)
[2021-09-25] MEDS: MAG HYDROX/AL HYDROX/SIMETH 30 ML UNIT-DOSE CUP PO PRN (06:03)
[2021-09-25] MEDS: FERROUS SO4 325 MG TABLET (FP) PO SCH ×2 (07:47→17:09)
[2021-09-25] MEDS: METHYL SALICYLATE/MENTHOL OINT 30 GM TUBE TP SCH ×2 (10:50→22:04)
[2021-09-25] MEDS: NICOTINE 10 MG CARTRIDGE (INHALER) IH PRN ×2 (10:51→21:45)
[2021-09-25] MEDS: ESCITALOPRAM OXALATE 10 MG TABLET PO SCH (10:51)
[2021-09-25] MEDS: PRENATAL VITAMINS W/ FOLIC ACID TABLET (FP) PO SCH (10:51)
[2021-09-25] MEDS ORDERED: PT OWN MED DRAWER 7, Y5N ONE (11:16)
[2021-09-25] MEDS: IBUPROFEN 400 MG TABLET (FP) PO PRN (21:42)
[2021-09-25] MEDS: QUEtiapine FUMARATE 100 MG TABLET (FP) PO SCH (21:45)
[2021-09-25] MEDS: THIAMINE HCL 100 MG TABLET (FP) PO SCH (22:04)
[2021-09-26] MEDS: CLINDAMYCIN HCL 150 MG CAPSULE (FP) PO SCH ×5 (00:09→23:10)
[2021-09-26] MEDS: GABAPENTIN 100 MG CAPSULE PO SCH ×3 (06:04→21:37)
[2021-09-26] MEDS: BUPRENORPHINE/NALOXONE 8 MG/2 MG FILM PACKET SL SCH ×2 (06:04→17:28)
[2021-09-26] MEDS: FERROUS SO4 325 MG TABLET (FP) PO SCH ×2 (10:40→17:28)
[2021-09-26] MEDS: ESCITALOPRAM OXALATE 10 MG TABLET PO SCH (10:40)
[2021-09-26] MEDS: PRENATAL VITAMINS W/ FOLIC ACID TABLET (FP) PO SCH (10:40)
[2021-09-26] MEDS: METHYL SALICYLATE/MENTHOL OINT 30 GM TUBE TP SCH ×2 (10:40→21:41)
[2021-09-26] MEDS: NICOTINE 10 MG CARTRIDGE (INHALER) IH PRN ×2 (17:27→21:37)
[2021-09-26] MEDS: MAG HYDROX/AL HYDROX/SIMETH 30 ML UNIT-DOSE CUP PO PRN (19:05)
[2021-09-26] MEDS: QUEtiapine FUMARATE 100 MG TABLET (FP) PO SCH (21:37)
[2021-09-26] MEDS: THIAMINE HCL 100 MG TABLET (FP) PO SCH (21:37)
[2021-09-27] MEDS: GABAPENTIN 100 MG CAPSULE PO SCH ×3 (06:08→21:31)
[2021-09-27] MEDS: FERROUS SO4 325 MG TABLET (FP) PO SCH ×2 (07:20→18:07)
[2021-09-27] MEDS: BUPRENORPHINE/NALOXONE 8 MG/2 MG FILM PACKET SL SCH ×2 (08:08→18:06)
[2021-09-27] MEDS: CLINDAMYCIN HCL 150 MG CAPSULE (FP) PO SCH ×4 (08:10→23:17)
[2021-09-27] MEDS: ESCITALOPRAM OXALATE 10 MG TABLET PO SCH (11:15)
[2021-09-27] MEDS: PRENATAL VITAMINS W/ FOLIC ACID TABLET (FP) PO SCH (11:17)
[2021-09-27] MEDS: METHYL SALICYLATE/MENTHOL OINT 30 GM TUBE TP SCH ×2 (11:17→21:31)
[2021-09-27] MEDS: NICOTINE 10 MG CARTRIDGE (INHALER) IH PRN (18:08)
[2021-09-27] MEDS: THIAMINE HCL 100 MG TABLET (FP) PO SCH (21:31)
[2021-09-27] MEDS: QUEtiapine FUMARATE 100 MG TABLET (FP) PO SCH (21:31)
[2021-09-28] MEDS: GABAPENTIN 100 MG CAPSULE PO SCH ×3 (06:22→21:40)
[2021-09-28] MEDS: IBUPROFEN 400 MG TABLET (FP) PO PRN (06:22)
[2021-09-28] MEDS: BUPRENORPHINE/NALOXONE 8 MG/2 MG FILM PACKET SL SCH ×2 (06:22→17:16)
[2021-09-28] MEDS: NICOTINE 10 MG CARTRIDGE (INHALER) IH PRN ×2 (06:23→21:42)
[2021-09-28] MEDS: CLINDAMYCIN HCL 150 MG CAPSULE (FP) PO SCH ×4 (06:59→23:15)
[2021-09-28] MEDS: FERROUS SO4 325 MG TABLET (FP) PO SCH ×2 (07:59→17:17)
[2021-09-28] MEDS: ESCITALOPRAM OXALATE 10 MG TABLET PO SCH (10:12)
[2021-09-28] MEDS: PRENATAL VITAMINS W/ FOLIC ACID TABLET (FP) PO SCH (10:12)
[2021-09-28] MEDS: METHYL SALICYLATE/MENTHOL OINT 30 GM TUBE TP SCH ×2 (10:12→21:41)
[2021-09-28] MEDS: MAG HYDROX/AL HYDROX/SIMETH 30 ML UNIT-DOSE CUP PO PRN (19:06)
[2021-09-28] MEDS: THIAMINE HCL 100 MG TABLET (FP) PO SCH (21:40)
[2021-09-28] MEDS: QUEtiapine FUMARATE 100 MG TABLET (FP) PO SCH (21:40)
[2021-09-29] MEDS: GABAPENTIN 100 MG CAPSULE PO SCH ×3 (06:47→21:53)
[2021-09-29] MEDS: BUPRENORPHINE/NALOXONE 8 MG/2 MG FILM PACKET SL SCH ×2 (06:47→17:23)
[2021-09-29] MEDS: NICOTINE 10 MG CARTRIDGE (INHALER) IH PRN ×2 (06:48→21:55)
[2021-09-29] MEDS: FERROUS SO4 325 MG TABLET (FP) PO SCH ×2 (07:59→18:32)
[2021-09-29] MEDS: CLINDAMYCIN HCL 150 MG CAPSULE (FP) PO SCH ×4 (08:00→23:05)
[2021-09-29] MEDS: PRENATAL VITAMINS W/ FOLIC ACID TABLET (FP) PO SCH (10:56)
[2021-09-29] MEDS: ESCITALOPRAM OXALATE 10 MG TABLET PO SCH (10:56)
[2021-09-29] MEDS: METHYL SALICYLATE/MENTHOL OINT 30 GM TUBE TP SCH ×2 (10:57→21:55)
[2021-09-29] MEDS: QUEtiapine FUMARATE 100 MG TABLET (FP) PO SCH (21:53)
[2021-09-29] MEDS: THIAMINE HCL 100 MG TABLET (FP) PO SCH (21:55)
[2021-09-30] MEDS: GABAPENTIN 100 MG CAPSULE PO SCH ×3 (06:42→21:48)
[2021-09-30] MEDS: BUPRENORPHINE/NALOXONE 8 MG/2 MG FILM PACKET SL SCH ×2 (06:42→17:14)
[2021-09-30] MEDS: CLINDAMYCIN HCL 150 MG CAPSULE (FP) PO SCH ×4 (06:43→23:32)
[2021-09-30] MEDS: FERROUS SO4 325 MG TABLET (FP) PO SCH ×2 (09:33→19:00)
[2021-09-30] MEDS: ESCITALOPRAM OXALATE 10 MG TABLET PO SCH (09:33)
[2021-09-30] MEDS: METHYL SALICYLATE/MENTHOL OINT 30 GM TUBE TP SCH ×2 (09:33→21:48)
[2021-09-30] MEDS: PRENATAL VITAMINS W/ FOLIC ACID TABLET (FP) PO SCH (10:36)
[2021-09-30] MEDS: IBUPROFEN 400 MG TABLET (FP) PO PRN (19:01)
[2021-09-30] MEDS: NICOTINE 10 MG CARTRIDGE (INHALER) IH PRN (19:45)
[2021-09-30] MEDS: QUEtiapine FUMARATE 100 MG TABLET (FP) PO SCH (21:49)
[2021-09-30] MEDS: THIAMINE HCL 100 MG TABLET (FP) PO SCH (21:49)
[2021-10-01] MEDS: GABAPENTIN 100 MG CAPSULE PO SCH ×3 (06:59→21:43)
[2021-10-01] MEDS: ACETAMINOPHEN 325 MG TABLET (FP) PO PRN (06:59)
[2021-10-01] MEDS: BUPRENORPHINE/NALOXONE 8 MG/2 MG FILM PACKET SL SCH ×2 (07:00→17:59)
[2021-10-01] MEDS: CLINDAMYCIN HCL 150 MG CAPSULE (FP) PO SCH ×2 (08:31→14:13)
[2021-10-01] MEDS: FERROUS SO4 325 MG TABLET (FP) PO SCH ×2 (08:32→18:00)
[2021-10-01] MEDS: PRENATAL VITAMINS W/ FOLIC ACID TABLET (FP) PO SCH (10:35)
[2021-10-01] MEDS: METHYL SALICYLATE/MENTHOL OINT 30 GM TUBE TP SCH ×2 (10:36→21:44)
[2021-10-01] MEDS: ESCITALOPRAM OXALATE 10 MG TABLET PO SCH (10:36)
[2021-10-01] MEDS: QUEtiapine FUMARATE 100 MG TABLET (FP) PO SCH (21:43)
[2021-10-01] MEDS: THIAMINE HCL 100 MG TABLET (FP) PO SCH (21:43)
[2021-10-02] MEDS: BUPRENORPHINE/NALOXONE 8 MG/2 MG FILM PACKET SL SCH (06:41)
[2021-10-02] MEDS: GABAPENTIN 100 MG CAPSULE PO SCH (06:41)
[2021-10-02] MEDS: FERROUS SO4 325 MG TABLET (FP) PO SCH (07:01)
[2021-10-02 07:31] VITALS: BP 99/67; PULSE 72; TEMP 97.6
[2021-10-02] MEDS: ESCITALOPRAM OXALATE 10 MG TABLET PO SCH (09:29)
[2021-10-02] MEDS: PRENATAL VITAMINS W/ FOLIC ACID TABLET (FP) PO SCH (09:30)
[2021-10-02] MEDS: METHYL SALICYLATE/MENTHOL OINT 30 GM TUBE TP SCH (09:30)
== END 2021-10-02 09:30 | disposition home or self-care (01) | DRG 772 ==
LOC: YASAS 01:52 → Y5N 02:03
PROVIDERS: ADMIT Allergy & Immunology; ATTEND Allergy & Immunology
PROC: HZ42ZZZ Group Counseling for Substance Abuse Treatment, Cognitive-Behavioral (ICD-10-PCS; principal; 2021-09-04)
DX: F13.20 Sedative, hypnotic or anxiolytic dependence, uncomplicated (principal); F11.20 Opioid dependence, uncomplicated; F14.20 Cocaine dependence, uncomplicated; F12.20 Cannabis dependence, uncomplicated; F17.210 Nicotine dependence, cigarettes, uncomplicated; F41.9 Anxiety disorder, unspecified; F32.A Depression, unspecified; L29.2 Pruritus vulvae; A74.9 Chlamydial infection, unspecified; R10.2 Pelvic and perineal pain; S00.83XA Contusion of other part of head, initial encounter; W18.12XA Fall from or off toilet with subsequent striking against object, initial encounter; Y93.89 Activity, other specified; Y92.231 Patient bathroom in hospital as the place of occurrence of the external cause; T50.905A Adverse effect of unspecified drugs, medicaments and biological substances, initial encounter; Y92.239 Unspecified place in hospital as the place of occurrence of the external cause; Z62.810 Personal history of physical and sexual abuse in childhood; Z56.0 Unemployment, unspecified; Z59.00 Homelessness unspecified
CPT/HCPCS: 36415; 80053; 81003; 81025; 85027; 86780; 86803; 87086; 87389; 87811; 93005; 93010; C9803; U0003; U0005